=== PATIENT | female | born 1985 | race Caucasian/White ===

== ENCOUNTER 2020-07-17 09:28 | Outpatient (CLI) | payer OTHER ==
[~2020-07-17 09:28] MED LIST: PRENATAL 19 TA1 EAC1 PO
== END 2020-07-17 09:37 | disposition home or self-care (01) ==
LOC: RAD 09:28
PROVIDERS: ATTEND Chiropractor
DX: M99.03 Segmental and somatic dysfunction of lumbar region (principal); M99.01 Segmental and somatic dysfunction of cervical region; M99.02 Segmental and somatic dysfunction of thoracic region

== ENCOUNTER 2020-08-24 13:45 | Outpatient (CLI) | payer OTHER | END 2020-08-24 13:50 | disposition home or self-care (01) | LOC: MAMO-SONO 13:45 → SONOGRAMA 13:45 | PROVIDERS: ATTEND Specialist | DX: N64.89 Other specified disorders of breast (principal) ==

== ENCOUNTER 2021-01-09 14:47 | Outpatient (CLI) | payer OTHER | END 2021-01-09 14:51 | disposition home or self-care (01) | LOC: RAD 14:47 | PROVIDERS: ATTEND Internal Medicine Pulmonary Disease | DX: R07.89 Other chest pain (principal); J01.80 Other acute sinusitis; R05 Cough ==

== ENCOUNTER 2022-04-18 14:18 | Outpatient (CLI) | payer OTHER | END 2022-04-18 14:21 | disposition home or self-care (01) | LOC: RAD 14:18 | PROVIDERS: ATTEND General Practice | DX: M12.572 Traumatic arthropathy, left ankle and foot (principal) ==

== ENCOUNTER 2022-09-19 09:29 | Outpatient (CLI) | payer OTHER | END 2022-09-19 09:33 | disposition home or self-care (01) | LOC: SONOGRAMA 09:29 | PROVIDERS: ATTEND Podiatrist Foot Surgery | DX: M20.21 Hallux rigidus, right foot (principal); M20.22 Hallux rigidus, left foot; M21.372 Foot drop, left foot ==

== ENCOUNTER → 2023-06-09 | Outpatient (CLI) | payer OTHER | END | disposition home or self-care (01) | LOC: RAD 13:59 | DX: M25.531 Pain in right wrist (principal); M25.532 Pain in left wrist; M79.642 Pain in left hand ==

== ENCOUNTER 2023-11-20 08:40 | Day surgery (SDC) | payer OTHER ==
[2023-11-14 09:31] LABS: HEMOGLOBIN 13.2 g/dL (12.0-15.00); MEAN CORPUSCULAR HEMOGLOBIN 29.5 pg (27.00-32.0); MEAN CORPUSCULAR HGB CONC 33.9 g/dl (32.0-36.0); PLATELET COUNT 297 K/uL (150-450); RED BLOOD COUNT 4.49 M/uL (4.00-6.00); RED CELL DISTRIBUTION WIDTH 14.2 % (11.5-14.5)
[2023-11-14 09:59] LABS: INR < 0.93; PARTIAL THROMBOPLASTIN TIME 27.6 SECONDS (22.0-34.0); PROTHROMBIN TIME 9.8 SECONDS (9.0-11.5)
[2023-11-14 10:02] LABS: PH,URINE 6.5 (5.0-8.0); URINE APPEARANCE Clear; URINE BILIRRUBIN Negative (NEGATIVE); URINE BLOOD Negative; URINE COLOR Yellow; URINE GLUCOSE Negative (NEGATIVE); URINE KETONE Trace (NEGATIVE); URINE LEUKOCYTE Negative; URINE NITRATE Negative; URINE PROTEIN Negative (NEGATIVE); URINE UROBILINOGEN 0.2 E.U./dl
[2023-11-14 10:10] LABS: URINE BACTERIA 171.3 uL (0.0-1933); URINE RBC 9.7 uL (0.0-20.8); URINE WBC 13.2 uL (0.0-23.2)
[2023-11-14 10:28] LABS: ALBUMIN 3.8 gm/dL (3.4-5.0); BILIRUBIN TOTAL 0.26 mg/dL (0.3-1.2); CALCIUM 8.5 mg/dL (8.5-10.1); CREATININE SERUM 0.64 mg/dL (0.55-1.02); GFR 102.78; GLOBULINA 3.6 G/DL (2.4-3.5); POTASSIUM 4.55 mEq/L (3.5-5.1); TOTAL PROTEIN 7.4 gm/dL (6.4-8.2); TSH 0.871 uIU/mL (0.358-3.74)
[2023-11-20] MEDS ORDERED: CEFOXITIN SODIUM 2,000 MG VIAL IV ONE (14:09)
[2023-11-20] MEDS ORDERED: POVIDONE-IODINE 118 ML BOTT TOP ONE (15:00)
[2023-11-20] MEDS ORDERED: PROMETHAZINE HCL 50 MG/ML AMPUL IM ONE (16:30)
[2023-11-20] MEDS ORDERED: MORPHINE SULFATE 4 MG/ML VIAL IV PRN (16:30)
[2023-11-20] MEDS ORDERED: MORGIDOX100 MG PO (16:31)
[2023-11-20] MEDS ORDERED: NAPR500T14 PO (16:31)
== END 2023-11-20 19:00 | disposition home or self-care (01) ==
LOC: CIR.AMB 08:40
PROVIDERS: ATTEND Obstetrics & Gynecology
DX: N84.0 Polyp of corpus uteri (principal); D25.0 Submucous leiomyoma of uterus; N93.8 Other specified abnormal uterine and vaginal bleeding

== ENCOUNTER 2024-11-02 08:16 | Outpatient (CLI) | payer OTHER ==
[~2024-11-02 08:16] MED LIST changes: +MORGIDOX100 MG PO; +NAPR500T14 PO
== END 2024-11-02 08:22 | disposition home or self-care (01) ==
LOC: MAMO-SONO 08:16
PROVIDERS: ATTEND Obstetrics & Gynecology
DX: N60.19 Diffuse cystic mastopathy of unspecified breast (principal)

== ENCOUNTER 2024-11-02 09:51 | Outpatient (CLI) | payer OTHER ==
[2024-11-02 10:15] LABS: BASO % 0.6 % (0.1-1.2); EOS # 0.03 (0.04-0.54); EOS % 0.4 % (0.7-7.0); LYMPH # 1.15 (1.18-3.74); LYMPH % 16.7 % (19.3-53.1); MEAN PLATELET VOLUME 9.90 fl (9.4-12.4); MONO # 0.43 (0.24-0.82); MONO % 6.2 % (4.7-12.5); NEUT # 5.22 (1.56-6.13); NEUT % 75.8 % (34.0-71.1); RED CELL DISTRIBUTION WIDTH 13.7 % (11.6-14.4)
[2024-11-02 11:30] LABS: ALT/SGPT 20.0 U/L (12-78); AST/SGOT 15.0 U/L (15-37); BILIRUBIN TOTAL 0.62 mg/dL (0.3-1.2); BUN CREA RATIO 20.0 (7.0-25.0); CHOL HDL RATIO 2.6 (0-5.0); CREATININE SERUM 0.64 mg/dL (0.55-1.02); GFR 102.26; GLOBULINA 3.5 G/DL (2.4-3.5); GLUCOSE FASTING 78.0 mg/dL (65-100); HDL 72.0 mg/dl (40-60); LDL 103.0 mg/dl (0-130); OSMOLALITY SERUM 284.0 MOSM/KG (275-295); T4 FREE 0.93 NG/ML (0.76-1.46); TSH 0.847 uIU/mL (0.358-3.74); VLDL 13.0 (0-39)
[2024-11-02 11:31] LABS: URINE APPEARANCE Clear; URINE BILIRRUBIN Negative (NEGATIVE); URINE BLOOD Negative; URINE COLOR Yellow; URINE GLUCOSE Negative (NEGATIVE); URINE KETONE 15 (NEGATIVE); URINE LEUKOCYTE Small; URINE NITRATE Negative; URINE PROTEIN Negative (NEGATIVE); URINE UROBILINOGEN 0.2 E.U./dl
[2024-11-02 11:34] LABS: URINE BACTERIA 594.0 uL (0.0-1933); URINE EPITHELIAL CELLS 32.3 uL (0.0-38.8); URINE RBC 17.1 uL (0.0-20.8); URINE WBC 59.5 uL (0.0-23.2)
[2024-11-02 12:03] LABS: URINE CAST 0.00 uL (0.0-1.40)
== END 2024-11-02 09:52 | disposition home or self-care (01) ==
LOC: LAB 09:51
PROVIDERS: ATTEND Obstetrics & Gynecology
DX: E78.2 Mixed hyperlipidemia (principal); I10 Essential (primary) hypertension